=== PATIENT | female | born 1995 | race African-American/Black ===

== ENCOUNTER 2019-05-11 22:25 | Emergency (ER) | payer SELFPAY ==
[2019-05-11 22:31] VITALS: BP 142/80; PULSE 61; RESP 14; TEMP 36.4; O2SAT 99
[2019-05-11] MEDS: ONDANSETRON 4 MG ODT SL (23:16)
--- NOTE | 2019-05-12 00:41 | ED_ITS ---
HPI - Nausea/Vomiting/Diarrhea General Chief complaint: Nausea/Vomiting/Diarrhea Stated complaint: Vomiting Time Seen by Provider: 05/12/19 00:41 Source: patient and EMS Mode of arrival: EMS Limitations: no limitations History of Present Illness HPI Narrative: The patient ingested edibles prepared by friend earlier today. She describes herself as not a heavy user of marijuana, she takes no other drugs. She does not smoke, she does not use alcohol. She is on no prescribed medications. After consuming the edibles, she felt spacey and on. She had no confusion. She has no visual changes. She had no difficulty breathing. She developed abdominal cramping, she did vomit twice. She arrives by EMS. She received dose friend ODT after arrival, her stomach has calmed down. She feels thirsty. Her symptoms are improving. Review of Systems Review of Systems ROS Unobtainable: All systems reviewed & are unremarkable except as noted in HPI and below Constitutional Constitutional: Reports chills, Denies fever(s), Denies lethargy and Denies weakness Eyes Eyes: Denies change in vision and Denies loss of vision ENT Ears, Nose, Mouth, and Throat: Denies change in voice, Reports dizziness, Reports dry mouth, Denies facial pain, Denies neck pain and Denies sore throat Cardiovascular Cardiovascular: Denies chest pain, Denies irregular heart rhythm, Denies lightheadedness, Denies palpitations, Denies dyspnea, Denies dyspnea on exertion and Denies orthopnea Respiratory Respiratory: Denies cough, Denies dyspnea, Denies dyspnea on exertion and Denies wheezing Gastrointestinal Gastrointestinal: Denies abdominal pain, Denies change in bowel habits, Denies diarrhea, Reports nausea and Reports vomiting Genitourinary Genitourinary: Denies dysuria and Denies urinary incontinence Musculoskeletal Musculoskeletal: Denies neck pain Integumentary/Breasts Skin/Breast: Denies pruritus, Denies erythema, Denies rash and Denies wounds Neurologic Neurologic: Denies confusion, Reports dizziness, Denies loss of vision and Denies weakness Psychiatric Psychiatric: Reports anxiety, Denies confusion and Denies paranoia Endocrine Endocrine: Denies palpitations Allergic/Immunologic Allergic/Immunologic: Denies wheezing Patient History Surgical History No significant past surgical history (Acute) Social History (Updated 05/12/19 @ 01:49 by Montana Batres MD) Smoking Status: Never smoker substance use type: marijuana, heroin and amphetamines Exam Initial Vital Signs Initial Vital Signs: Vital Signs Temperature 97.5 F L 05/11/19 22:31 Pulse Rate 61 05/11/19 22:31 Respiratory Rate 14 05/11/19 22:31 Blood Pressure 142/80 H 05/11/19 22:31 Pulse Oximetry 99 05/11/19 22:31 Const General: cooperative and well developed Nutritional Appearance: well nourished Orientation: alert, awake, oriented x3 and not confused HENPR Head: normal to inspection, normocephalic and atraumatic Mouth: oral mucosae normal Throat: posterior oropharynx normal Eyes General: appearance normal, both eyes and all related structures Eyelids: eyelids normal Conjunctivae: conjunctivae normal Sclera: sclerae normal Pupils: PERRL EOM: EOM intact bilaterally Other: Bilateral nystagmus Neck Neck: full ROM and No tender Resp Effort & Inspection: normal respiratory effort and able to speak in complete sentences Auscultation: clear to auscultation bilaterally, no rales, no rhonchi and no wheezes Cardio Rate: regular rate Rhythm: regular rhythm Heart Sounds: no click, no gallops, no murmurs and no rubs Pulses: normal peripheral pulses GI Inspection: non-distended Palpation: soft, no hepatosplenomegaly, No guarding and No tender Auscultation: normal bowel sounds Skin General: no rashes or lesions noted, No jaundice and No petechiae Neuro General: alert, oriented x3, gait normal and no focal motor deficits Speech: speech normal Course Course Course Narrative: The patient received Zofran ODT after arrival. Her nausea resolved with Zofran. Anxiety and her odd feeling has resolve with time. Orders Ordered: ED Orders 05/12/19 01:04 Urine Drug Screen, Rapid Stat Discontinued Medications Ondansetron HCl (Zofran Odt) 4 mg SL NOW ONE Stop: 05/11/19 22:45 Last Admin: 05/11/19 23:16 Dose: 4 mg Documented by: THIEN Ondansetron HCl (Zofran Odt Prepack) 1 bottle MISC SEEINSTR ONE Stop: 05/12/19 01:42 Vital Signs Vital signs: Vital Signs - 8 hr 05/11/19 22:31 Temperature 97.5 F L Pulse Rate 61 Respiratory Rate 14 Blood Pressure 142/80 H Pulse Oximetry 99 MDM - Nausea/Vomiting/Diarrhea Lab Data Labs: Lab Results 05/12/19 Range/Units 01:04 U Morph 300 ng/mL cutoff Negative (Negative) Ur Oxycodone Screen Negative (Negative) Urine Methadone Screen Negative (Negative) Ur Barbiturates Screen Negative (Negative) U Tricyclic Antidepress Negative (Negative) Ur Phencyclidine Scrn Negative (Negative) Ur Amphetamines Screen Negative (Negative) U Methamphetamines Scrn Negative (Negative) Ur MDMA Scrn (Ecstasy) Negative (Negative) U Benzodiazepines Scrn Negative (Negative) Urine Cocaine Screen Negative (Negative) U Marijuana (THC) Screen Positive H (Negative) Point of Care Testing Test Results Negative Urine Dip Bedside Urine Glucose Negative Bedside Urine Bilirubin - Negative Bedside Urine Ketone - Negative Urine Specific [place] 1.020 Bedside Urine Occult Blood - Negative Bedside Urine pH 6.0 Bedside Urine Protein +/- 15 Bedside Urine Urobilinogen +/- 1mg Bedside Urine Nitrite - Negative Bedside Urine Leukocytes - Negative Esterase Discharge Plan Departure Patient Disposition: Home Clinical Impression: Marijuana intoxication Qualifiers: Complication of substance-induced condition: uncomplicated Qualified Code(s): F12.920 - Cannabis use, unspecified with intoxication, uncomplicated Instructions: Substance Use Disorder Activity Restrictions/Additional Instructions: Zofran every 4-6 hours as needed for nausea. Avoid or carefully regulate how much of the marijuana product use. Return the ER as needed.
[2019-05-12 01:20] LABS: UR Morphine/Opiate cutoff 300 Negative (Negative); Ur Creatinine Normal (Normal); Ur Specific Gravity Normal (Normal); Urine Amphetamines Negative (Negative); Urine Barbiturates Negative (Negative); Urine Benzodiazepines Negative (Negative); Urine Cocaine Negative (Negative); Urine MDMA Negative (Negative); Urine Methadone Negative (Negative); Urine Methamphetamines Negative (Negative); Urine Oxycodone Negative (Negative); Urine Phencyclidine Negative (Negative); Urine Tetrahydrocannabinol Positive (Negative); Urine Tricyclic Antidepressant Negative (Negative); Urine pH Normal (Normal)
[2019-05-12] MEDS: ONDANSETRON 4 MG ODT PREPACK 1 BOTTLE MISC (01:48)
[2019-05-12 01:51] VITALS: BP 127/68; PULSE 66; RESP 20; TEMP 37
== END 2019-05-12 01:53 | disposition home or self-care (01) ==
PROVIDERS: Emergency Provider Emergency Medicine
DX: F12.929 Cannabis use, unspecified with intoxication, unspecified (principal)
CPT/HCPCS: 80305; 81003; 81025; 99281; 99283

== ENCOUNTER 2020-10-10 15:09 | Emergency (ER) | payer SELFPAY ==
[2020-10-10 15:30] VITALS: BP 190/91; PULSE 74; RESP 18; TEMP 36.6; O2SAT 99
--- NOTE | 2020-10-10 15:39 | ED.GENADULT ---
HPI - General Adult General Chief complaint: Nasal Problem Stated complaint: LEFT SIDE NASAL SWELLING Time Seen by Provider: 10/10/20 15:11 Source: patient Mode of arrival: Ambulatory Limitations: no limitations History of Present Illness HPI narrative: 25F nonsmoker with benign medical history presents with significant other and chief complaint of a painless bump in her left nostril over the past few days. She's had some recent nasal drainage and sinus problems, but no history of this nasal mass. She has no fever or chills and no significant trouble breathing. She's had no trauma. Onset (ago): day(s) Radiation: non-radiation Relieving factors: none Exacerbating factors: none Treatments prior to arrival: none Related Data Allergies Allergy/AdvReac Type Severity Reaction Status Date / Time No Known Drug Allergies Allergy Verified 10/10/20 15:32 Review of Systems Constitutional Constitutional: Denies chills, Denies fatigue, Denies fever(s), Denies frequent falls, Denies lethargy and Denies weakness Eyes Eyes: Denies change in vision, Denies eye discharge, Denies irritation and Denies loss of vision ENT Ears, Nose, Mouth, and Throat: Denies change in voice, Denies dizziness, Denies neck pain, Denies sore throat and Denies throat swelling Cardiovascular Cardiovascular: Denies chest pain, Denies irregular heart rhythm, Denies lightheadedness, Denies palpitations, Denies dyspnea, Denies dyspnea on exertion and Denies orthopnea Respiratory Respiratory: Denies cough, Denies dyspnea, Denies dyspnea on exertion and Denies wheezing Gastrointestinal Gastrointestinal: Denies abdominal pain, Denies change in bowel habits, Denies diarrhea, Denies nausea and Denies vomiting Musculoskeletal Musculoskeletal: Denies neck pain and Denies numbness Integumentary/Breasts Skin/Breast: Denies pruritus, Denies erythema, Denies rash and Denies wounds Neurologic Neurologic: Denies behavioral changes, Denies confusion, Denies dizziness, Denies frequent falls, Denies loss of vision, Denies numbness and Denies weakness Psychiatric Psychiatric: Denies anxiety, Denies behavioral changes, Denies confusion, Denies depression, Denies homicidal ideation and Denies suicidal ideation Endocrine Endocrine: Denies fatigue, Denies flushing and Denies palpitations Hematologic/Lymphatic Hematologic/Lymphatic: Denies easy bruising Allergic/Immunologic Allergic/Immunologic: Denies urticaria, Denies throat swelling and Denies wheezing Patient History Surgical History No significant past surgical history Social History (Updated 05/12/19 @ 01:49 by Montana Batres MD) Smoking Status: Never smoker substance use type: marijuana, heroin and amphetamines Smoking Status: Never smoker Exam Narrative Exam Narrative: GEN: AOx3 and in mild distress EYES: Pupils are equal, round, and reactive to light and accommodation. Extraoccular muscles are intact bilaterally. There is no subconjunctival hemorrhage or exudate. ENT: soft painless fleshy nodule noted in L nare attached to septum. No erythema, drainage or pain. No bleeding. CHEST: Lungs are clear to auscultation bilaterally and free of wheezes, rales, or rhonchi. Heart rate is regular rhythm, there are no murmurs, clicks, rubs, or gallops. There is no chest wall tenderness. ABD: Abdomen is soft and nontender. There is no guarding or rebound. Bowel sounds are normal in all 4 quadrants. There is no mass or organomegaly. EXT: Full painless ROM of all extremities with no loss of sensation or strength. SKIN: Warm, pink, and dry. No erythema or rash Initial Vital Signs Initial Vital Signs: Vital Signs Temperature 97.9 F 10/10/20 15:30 Pulse Rate 74 10/10/20 15:30 Respiratory Rate 18 10/10/20 15:30 Blood Pressure 190/91 H 10/10/20 15:30 Pulse Oximetry 99 10/10/20 15:30 Course Consultations Consultation #1: discussed with business support professional ENT, he recommends against any treatment or therapy from ED, but give contact info for ENT office to be seen in follow up Vital Signs Vital signs: Vital Signs - 8 hr 10/10/20 15:30 Temperature 97.9 F Pulse Rate 74 Respiratory Rate 18 Blood Pressure 190/91 H Pulse Oximetry 99 Discharge Plan Departure Patient Disposition: Home Clinical Impression: Left nasal polyps Instructions: DI for Nasal Polyp Activity Restrictions/Additional Instructions: *You have been diagnosed with [nasal polyp left nare] *What to do: *Please continue to take your regular medications as directed. [ ] New medication prescriptions sent to your pharmacy: [ ] [ ] New medication written as a paper prescription [x] No new medications given Please contact [facility], call them today and let them know you were seen in the Emergency Department and I(Dr. Frankel) spoke with the business support professional ENT doctor and they'd like you to be seen by Dr. Rubio in the office in the next few days *Return to Emergency Department if you should have any new, worsening or concerning symptoms, such as [fever greater than 101 F, shaking chills, worsening pain, persistent vomiting or other bothersome symptoms] Referrals: Yossi Rubio MD [Physician] -
== END 2020-10-10 16:04 | disposition home or self-care (01) ==
PROVIDERS: Emergency Provider Emergency Medicine
DX: J33.9 Nasal polyp, unspecified (principal)
CPT/HCPCS: 99281